=== PATIENT | female | born 1965 | race Caucasian/White ===

== ENCOUNTER 2022-06-08 15:17 | Emergency (ER) | payer MEDICAID, OTHER ==
[~2022-06-08] VITALS: Ht 160 cm; Wt 98.6 kg
[2022-06-08] MEDS ORDERED: AZITTAB PO (16:11)
[2022-06-08] MEDS ORDERED: ACET1CAP14 PO (16:11)
[2022-06-08 21:30] VITALS: BP 128/65
== END 2022-06-08 21:42 | disposition home or self-care (01) ==
LOC: ER 15:17
DX: H66.91 Otitis media, unspecified, right ear (principal); E11.9 Type 2 diabetes mellitus without complications; Z88.0 Allergy status to penicillin